=== PATIENT | male | born 1945 | race Hispanic/Latino ===

== ENCOUNTER 2020-07-22 10:45 | Outpatient (CLI) | payer MEDICARE ==
--- NOTE | 2020-07-22 13:18 | Cat Scan Report ---
CT ABDOMEN AND PELVIS WITHOUT CONTRAST INDICATION / CLINICAL INFORMATION: URINARY URGENCY. TECHNIQUE: Axial CT images were obtained through the abdomen and pelvis without IV contrast. All CT [facility] location are performed using CT dose reduction for ALARA by means of automated exposure control. COMPARISON: None available. FINDINGS: LOWER CHEST: The lung bases are clear. There is moderate generalized atherosclerosis. LIVER: Generalized steatosis without other significant abnormalities. GALLBLADDER: Surgically absent. BILE DUCTS: No significant abnormality. PANCREAS: No significant abnormality. SPLEEN: No significant abnormality. ADRENALS: No significant abnormality. RIGHT KIDNEY / URETER: Multiple probable right renal cysts measure up to 3.9 cm along the mid pole. T here is moderate right hydroureteronephrosis. Along the distal third of the right ureter on image 586 of series 3 just above the hips is a 1-2 mm stone. There is nonspecific thickening and increased att enuation seen along the distal third of the right ureter beginning at the level of the stone and exte nding to the UVJ. No other stones are identified. There is moderate periureteral fat stranding that i s most notable along the distal half of the right ureter. No other significant abnormality. LEFT KIDNEY / URETER: Nonobstructive left lower renal pole stones measure up to 3.3 mm. No other sign ificant abnormality. STOMACH / SMALL BOWEL: No significant abnormality. COLON: There is sigmoid diverticulosis without evidence of diverticulitis. No other significant abnor malities. APPENDIX: No significant abnormality. PERITONEUM: No free fluid. No free air. No fluid collection. LYMPH NODES: Multiple enlarged periaortic nodes are present. A node located to the right of midline a t the level of the lower renal poles measures 1.2 cm in short axis dimension on image 55 of series 4. There are multiple enlarged right iliac chain nodes. A payable representative right external iliac chain nod e on image 89 of series 4 measures 1.3 cm in short axis dimension. AORTA / ARTERIES: There is moderate generalized atherosclerosis without other significant abnormaliti es. IVC / VEINS: No significant abnormality. URINARY BLADDER: Soft tissue fullness at the right UVJ measures 2.8 x 1.3 cm on image 97 of series 4 and is concerning for a mass. No other significant abnormality. REPRODUCTIVE ORGANS: No significant abnormality. ADDITIONAL FINDINGS: None. SKELETAL SYSTEM: No acute abnormality or aggressive appearing lesion. There is moderate thoracolumbar spondylosis. IMPRESSION: 1. Suspected distal right ureteral/UVJ mass with secondary moderate obstruction. 2. Enlarged lymph nodes as above are concerning for metastatic disease. 3. Additional findings as above. Signer Name: Ernesto Garcia MD Signed: 07/22/2020 1:14 PM Workstation Name: [id number]
== END 2020-07-22 10:46 | disposition home or self-care (01) ==
LOC: CT 10:45
PROVIDERS: ATTEND Urology
DX: N28.1 Cyst of kidney, acquired (principal); K76.0 Fatty (change of) liver, not elsewhere classified; R39.15 Urgency of urination; N20.2 Calculus of kidney with calculus of ureter; K57.30 Diverticulosis of large intestine without perforation or abscess without bleeding; N13.39 Other hydronephrosis
CPT/HCPCS: 74176

== ENCOUNTER 2020-07-29 08:51 | Day surgery (SDC) | payer MEDICARE ==
[~2020-07-29 08:51] MED LIST: LACTATED RINGERS 1,000 ML IV SCH
[2020-07-29] MEDS ORDERED: INSULIN REGULAR, HUMAN 100 UNITS/1 ML ONE (10:00)
--- NOTE | 2020-07-29 10:02 | Anesthesia Day of Surgery ---
Anesthesia Day of Surgery - Day of Surgery Patient Examined: Yes Patient H&P Reviewed: Yes Patient is NPO: Yes
--- NOTE | 2020-07-29 10:02 | Anesthesia Consultation ---
Anesthesia Consult and Med Hx Date of service: 07/29/20 - Airway Anesthetic Teeth Evaluation: Good ROM Head & Neck: Adequate Mental/Hyoid Distance: Adequate Mallampati Class: Class III Intubation Access Assessment: Possibly Difficult - Pulmonary Exam CTA: Yes - Cardiac Exam Cardiac Exam: RRR - Pre-Operative Health Status ASA Pre-Surgery Classification: ASA2 Proposed Anesthetic Plan: General - Pulmonary Hx Smoking: Yes (STOPPED 1992) Hx Respiratory Symptoms: No Hx Sleep Apnea: No (GRACIELA PRE SCREEN HIGH RISK) - Cardiovascular System Hx Hypertension: Yes (took losartan and amlodipine this morning) Hx Heart Attack/AMI: No Hx Percutaneous Transluminal Coronary Angioplasty (PTCA): No Hx Cardia Arrhythmia: No - Central Nervous System CVA: No - Gastrointestinal Hx Gastroesophageal Reflux Disease: No - Endocrine Hx Renal Disease: No Hx Liver Disease: No Hx Non-Insulin Dependent Diabetes: Yes Hx Hypothyroidism: Yes - Other Systems Hx Obesity: Yes (BMI 30) - Additional Comments Anesthesia Medical History Comments: No hx anesthetic complications.
[2020-07-29] MEDS ORDERED: INSULIN REGULAR, HUMAN 100 UNIT/ML 3ML VIAL IV ONE (10:09)
--- NOTE | 2020-07-29 11:18 | Post Operative Note ---
Date of procedure: 07/29/20 Pre-op diagnosis: hydro r Post-op diagnosis: same Findings: see note Procedure: cysto rpgs bx Surgeon: ANGELA TRIVEDI Estimated blood loss: none Pathology: list (bladder ureter) Specimen disposition: to lab Condition: stable Disposition: PACU
--- NOTE | 2020-07-29 11:19 | Discharge Summary ---
Short Stay Discharge Plan Activity: other (straining ) Weight Bearing Status: Full Weight Bearing Diet: low fat, low cholesterol, low salt Special Instructions: other (inc fluids ) Durable Medical Equipment Needed Upon Discharge: other (stent sosa ) Follow up with: ANGELA TRIVEDI MD [Primary Care Provider] - 7 Days
[2020-07-29] MEDS ORDERED: LIDOCAINE MPF (2%) 20 MG/1 ML VIAL 5 ML ONE (11:31)
[2020-07-29] MEDS ORDERED: propofoL 200 MG/20 ML VIAL IV ONE (11:31)
[2020-07-29] MEDS ORDERED: HYDROmorphone 1 MG/1 ML INJ ONE (11:37)
[2020-07-29] MEDS ORDERED: METHYLENE BLUE 50 MG/10 ML AMP ONE (12:21)
[2020-07-29] MEDS ORDERED: FUROSEMIDE 40 MG/4 ML INJ ONE (12:35)
[2020-07-29] MEDS ORDERED: ONDANSETRON 4 MG/2 ML INJ ONE (12:56)
[2020-07-29] MEDS ORDERED: PHENYLEPHRINE/NS 1,000 MCG/10 ML SYRINGE (OR USE) IV ONE (13:10)
[2020-07-29] MEDS ORDERED: WATER FOR IRRIG STERILE 2000 ML IR ONE (13:13)
[2020-07-29] MEDS ORDERED: WATER FOR IRRIG STERILE 1,500 ML BOTTLE IR ONE (13:14)
--- NOTE | 2020-07-29 13:30 | Operative Report ---
PREOPERATIVE DIAGNOSES: Right hydronephrosis, evidence of a lesion, right distal ureter. POSTOPERATIVE DIAGNOSES: Right hydronephrosis, evidence of a lesion, right distal ureter with evidence of infiltration in the posterior bladder wall and right lateral aspect of the bladder and right ureteral orifice. PROCEDURE: Cystoscopy with left retrograde, resection of a bladder mass, left double-J stent. SURGEON: Dr. Woodard. ANESTHESIA: General. FINDINGS: This is a gentleman with an increased creatinine, showed a mass with enhancing along the right distal ureter with moderate hydronephrosis. He had no significant pain, no hematuria. He now presents for cystoscopy. DESCRIPTION OF PROCEDURE: The patient was brought to the operating room and placed on the operating table. Following induction of anesthesia, placed in lithotomy position, prepped and draped in usual sterile fashion. Cystourethroscopy showed a little bit of a narrowed urethra, we visualized under direct vision. Once we got in the bladder, there was severe edema and inflammation on the right side of the bladder. It was difficult to even find the left orifice, but we found it distal and there was some dilatation of the distal left ureter. No persistent filling defects. Urine was obtained for cytology. Before we did any type of biopsies, we placed a double-J on the left side. A resectoscope was placed under direct vision. The part of that right-sided mass and trigone was resected. We could not see the orifice despite giving him indigo methylene blue. The patient tolerated the procedure well. There was good hemostasis. We did not use the cautery much at all, we just resected it, and he will need a followup CT scan, likely percutaneous nephrolithotomy, pending the pathology. He was brought to recovery in stable condition. JOB# [id number] IRVING/KACY
[2020-07-29] MEDS: fentaNYL 100 MCG/2 ML INJ IV PRN ×2 (13:50→14:00)
--- NOTE | 2020-07-29 14:28 | Fluoroscopy Report ---
FL retrograde urography INDICATION / CLINICAL INFORMATION: HYDRONEPHROSIS. COMPARISON: None available. FINDINGS: Spot intraoperative images were used for surgical guidance during left retrograde urography and JJ ur eteral stent placement. Surgical mesh is noted of the abdomen. Fluoroscopy time: 37 seconds.. Fluoroscopic images: 4. Signer Name: Stephen Darnell MD Signed: 07/29/2020 2:23 PM Workstation Name: [id number]
[2020-07-29] MEDS ORDERED: hydrALAZINE 20 MG/1 ML INJ ONE (15:54)
[2020-07-29] MEDS ORDERED: hydrALAZINE 20 MG/1 ML INJ IV PRN (16:00)
--- NOTE | 2020-07-29 16:18 | Post Anesthesia Evaluation ---
- Post Anesthesia Evaluation Patient Participated: Yes Airway Patent: Yes Stable Respiratory Function: Yes Nausea/Vomiting: No Temp > 96.8F: Yes Pain Manageable: Yes Adequeate Hydration: Yes Anesthesia Complications: No
[2020-07-29 17:09] VITALS: BP 142/73
== END 2020-07-29 08:52 | disposition home or self-care (01) ==
LOC: OR 08:51
PROVIDERS: ATTEND Urology
DX: N13.30 Unspecified hydronephrosis (principal); Z20.828 Contact with and (suspected) exposure to other viral communicable diseases; C67.0 Malignant neoplasm of trigone of bladder; R39.15 Urgency of urination; E78.00 Pure hypercholesterolemia, unspecified; I10 Essential (primary) hypertension; E66.9 Obesity, unspecified; E11.9 Type 2 diabetes mellitus without complications; E03.9 Hypothyroidism, unspecified; Z87.891 Personal history of nicotine dependence; Z79.899 Other long term (current) drug therapy; Z79.84 Long term (current) use of oral hypoglycemic drugs; Z90.49 Acquired absence of other specified parts of digestive tract; Z87.442 Personal history of urinary calculi; Z96.652 Presence of left artificial knee joint; Z98.890 Other specified postprocedural states
CPT/HCPCS: 52234; 52332; 74420; 82962; 88112; 88305; A4217; C1758; C1769; C2617; J0360; J1170; J1940; J2370; J2405; J2704; J3010; J7120; Q9967; Q9968; U0003; J1815